=== PATIENT | female | born 1955 | race Caucasian/White ===

== ENCOUNTER → 2016-09-10 | Day surgery (SDC) | payer OTHER ==
[~2016-09-10] MED LIST: BREO ELLIPTA I1 EACH INH; FLEXERIL10 M1 PO; IBUPROFEN800 MG PO; LIPITOR PO; NO MEDICATIONS; OFEV; OMEPRAZOLE20 M1 PO; OMEPRAZOLE40 M1 PO; PERCOCET5/325 PO; SYMBICORT 160/4.6 G1 IN; ZOFRAN PO
--- NOTE | ~2016-09-10 | OR ---
Unit #: [id number] #: [id number] Patient: OUMOU YIN [id number] [address] [address] [id number] O MR#: [id number] NAME: OUMOU YIN. ROOM: Date of Procedure: 09/10/2016 Admission Date: 09/10/2016 Surgeon: Luis Alberto Thompson M.D. : 1955 Attending Physician: uLis Alberto Thompson M.D. Referring Physician: Luis Alberto Thompson M.D. Primary Care Physician: Narayan Reyes M.D. OPERATIVE REPORT PRIMARY CARE PHYSICIAN Narayan Reyes M.D. PREOPERATIVE DIAGNOSES Dysphagia and dyspepsia. In addition, the patient needs colorectal cancer screening. PROCEDURES PERFORMED Upper gastrointestinal endoscopy and biopsy as well as colonoscopy up to cecum with good prep and visualization. POSTOPERATIVE DIAGNOSES For upper endoscopy: 1. The patient had moderate prepyloric antral erosive gastritis. Otherwise, examination was normal up to third part of duodenum. A biopsy was obtained from the antrum for CLOtest. 2. There was no evidence of any esophageal stricture or esophagitis nor any evidence of mucosal ring in the esophagus. For colonoscopy: The patient had mild sigmoid diverticulosis, otherwise normal examination up to cecum. The quality of the prep was good. No polyps were seen. RECOMMENDATIONS 1. Follow up the results of the CLOtest. 2. Consider repeat colonoscopy in 10 years. 3. The patient will be followed up in the office in 4 months' time. SEDATION USED MAC. DESCRIPTION OF PROCEDURE Following detailed explanation of potential risks and complications of an upper endoscopy and a colonoscopy, namely perforation, bleeding, and complication related to sedation, the patient was brought to GI lab and laid in the left lateral decubitus position. Lubricated tip of the Olympus video upper endoscope was passed through the bite block into the proximal esophagus under direct vision. The entire esophageal mucosa was examined and appeared normal. Z-line was nicely demarcated, there being no esophagitis or hiatus hernia. In addition, no mucosal ring or stricture was seen. The scope was then advanced into the gastric cavity and the latter was insufflated. Mucosa of the fundus, body, and antrum was examined. The patient was noted to have moderate prepyloric antral Unit #: [id number] #: [id number] Patient: OUMOU YIN erythema erosions indicating antral gastritis. Pylorus was intubated with visualization of the normal duodenal bulb and second and third part of the duodenum. Upon withdrawal and retroflexion, incisura, cardia, and greater curve was examined and no additional findings were noted. A biopsy was obtained from the antrum for CLOtest. The scope was then withdrawn in the distal esophagus. The entire esophageal mucosa was examined all the way up to pharynx. No additional findings were noted. The examination table was then turned by 180 degrees and the patient positioned for a colonoscopy. A digital rectal examination was performed which was normal. Lubricated tip of the Olympus video colonoscope was inserted through the anus and advanced under direct vision. The scope was advanced past rectosigmoid into descending colon. Scant small diverticula were seen in the sigmoid colon. The scope tip was then navigated all the way up to cecum with visualization of the ileocecal valve and the appendiceal orifice. Preparation was excellent with good visualization and photodocumentation was obtained. Last several inches of the terminal ileum were also visualized after intubation of the ileocecal valve and appeared normal. Successive segments of the colonic mucosa were examined upon withdrawal and appeared unremarkable. There being no polyps, mass lesions, or AVMs. Other than the scant diverticula seen in the left side, no other abnormalities were noted. The scope was then withdrawn and the patient returned to the recovery area. She tolerated the procedure without any postprocedure complications. Dictated by... Kai Pack/anita TD: 09/10/2016 16:00 JOB #: [id number] CC: Narayan Reyes M.D. OPERATIVE REPORT Page 1 of 1 X Luis Alberto Thompson MD X PROCEDURE OPERATIVE NOTE
== END | disposition home or self-care (01) ==
LOC: COPS 09:32
PROVIDERS: Internal Medicine Gastroenterology
PROC: 0DB78ZX Excision of Stomach, Pylorus, Via Natural or Artificial Opening Endoscopic, Diagnostic (ICD-10-PCS; principal; 2016-09-10 15:00)
PROC: 0DJD8ZZ Inspection of Lower Intestinal Tract, Via Natural or Artificial Opening Endoscopic (ICD-10-PCS; 2016-09-10 15:00)
DX: K29.60 Other gastritis without bleeding (principal); Z12.11 Encounter for screening for malignant neoplasm of colon; K57.30 Diverticulosis of large intestine without perforation or abscess without bleeding; K21.9 Gastro-esophageal reflux disease without esophagitis; R13.10 Dysphagia, unspecified; E78.5 Hyperlipidemia, unspecified; R93.3 Abnormal findings on diagnostic imaging of other parts of digestive tract; R63.4 Abnormal weight loss; M81.0 Age-related osteoporosis without current pathological fracture; J30.2 Other seasonal allergic rhinitis; R05 Cough; Z79.899 Other long term (current) drug therapy; Z87.01 Personal history of pneumonia (recurrent); Z90.710 Acquired absence of both cervix and uterus
CPT/HCPCS: 43239; G0121; 87077; J2250

== ENCOUNTER → 2016-09-24 | Outpatient (CLI) | payer OTHER ==
--- NOTE | ~2016-09-24 | CT57 ---
[facility]. [facility] A Service of [facility] / [facility] RADIOLOGY TEXT RESULTS PATIENT: OUMOU YIN LOCATION: [facility] : 53 UNIT #: [id number] AGE: [address]: Phan Ng MD SEX: F ORDER DR: [id number] [facility] [address] [place], [place] [address] [id number] O MR#: [id number] Acc #: [id number] NAME: OUMOU YIN. : 1955 SEX: F STUDY DATE/TIME: 09/24/2016 14:26 UNIT: [facility] ROOM: STUDY DESCRIPTION: CT Chest Wo Cont Attending Physician: Pahn Ng M.D. Referring Physician: Phan Ng M.D. Ordering Physician: Phan Ng M.D. Primary Care Physician: Narayan Reyes M.D. MEDICAL IMAGING REPORT This report is preliminary unless electronic signature is present EXAM CT chest without contrast. DATE OF EXAM 09/24/2016 CLINICAL HISTORY Dyspnea. Pulmonary fibrosis. Intermittent shortness of air for 3 years. Wheezing, cough and congestion. TECHNIQUE CT of the thorax without contrast. High resolution images were obtained in inspiration and expiration in the supine position and inspiration images were obtained in the prone position. The exam was performed at a high-resolution chest CT. NOTE: This CT exam was performed with one or more of the following radiation dose reduction techniques: automatic exposure control, adjustment of mA and/or kV according to patient size, and iterative reconstruction. COMPARISON CT chest, 03/12/2016. FINDINGS Predominately peripheral airspace opacities and interstitial thickening is unchanged from the 03/12/2016 comparison. This has a slight upper lobe predominance. There is some mild central bronchiectasis. There is no architectural distortion or honeycombing. No ground-glass attenuation to suggest an active alveolitis. No significant air trapping. No pathologically enlarged mediastinal or hilar lymph node. There is no pericardial effusion. The thoracic aorta is normal in caliber. Limited images of the upper abdomen were obtained. There is no acute STS. [facility] A Service of [facility] / [facility] RADIOLOGY TEXT RESULTS PATIENT: OUMOU YIN LOCATION: [facility] : 53 UNIT #: [id number] AGE: [address]: Phan Ng MD SEX: F ORDER DR: findings. IMPRESSION 1. Peripheral airspace opacities and interstitial thickening has an upper lobe predominance. The appearance is unchanged from the 03/12/1926 comparison. There is some mild associated bronchiectasis, however, no architectural distortion/honeycombing. The finding is nonspecific (NSIP--nonspecific interstitial pneumonia). No evidence of a usual interstitial pneumonia (UIP). 2. No evidence of active alveolitis. Dictated by... Freddy Quezada M.D. THIS IS AN ELECTRONICALLY VERIFIED REPORT Freddy Quezada M.D. at 09/28/2016 9:42 AM BOB/jerson TD: 09/24/2016 21:24 JOB #: [id number] MEDICAL IMAGING REPORT Page 1 of 1 COPY
== END | disposition home or self-care (01) ==
LOC: CCAT 13:16
DX: R06.00 Dyspnea, unspecified (principal); J98.4 Other disorders of lung; R91.8 Other nonspecific abnormal finding of lung field
CPT/HCPCS: 71250